=== PATIENT | female | born 1990 | race African-American/Black ===

== ENCOUNTER 2016-12-24 20:27 | Emergency (ER) | payer SELFPAY ==
[~2016-12-24] VITALS: Ht 160 cm; Wt 65.0 kg
[2016-12-24 20:50] VITALS: BP 123/85
== END 2016-12-24 23:53 | disposition left against medical advice (07) ==
LOC: ER 20:28
DX: Z53.21 Procedure and treatment not carried out due to patient leaving prior to being seen by health care provider (principal)